=== PATIENT | female | born 1975 | race Caucasian/White ===

== ENCOUNTER 2016-10-04 17:36 | Emergency (ER) | payer OTHER ==
[~2016-10-04] VITALS: Ht 162.6 cm; Wt 63.2 kg
[~2016-10-04 17:36] MED LIST: CYCL5TAB PO; ESCI20TA38 PO; HYDR200T PO; LAMO50TA PO; RES15 PO
[2016-10-04 17:41] VITALS: BP 134/86; PULSE 74; RESP 16; O2SAT 100
[2016-10-04 18:52] LABS: BASOPHILS % (AUTO) 0.6 % (0-3); EOSINOPHILS % (AUTO) 2.8 % (0-5); MONOCYTES % (AUTO) 8.3 % (4-12); Mean Corpuscular Hemoglobin 31.6 pg (27.0-35.0); Mean Corpuscular Volume 94.6 fL (81-100); Platelet Count 265 bil/L (150-400)
[2016-10-04 19:13] LABS: Magnesium 2.2 mg/dL (1.6-2.6)
--- NOTE | 2016-10-04 20:50 | ED.REPORT ---
HPI-Abd Pain F 40 and Over Date of Service Oct 04, 2016 ED Provider: Dr. Cr A 41 year old female with a history of Lupus presents to the ED complaining of periumbilical tenderness onset 48 hours ago. Associated symptoms include diarrhea. She denies any . Nursing Notes Stated Complaint: ABD PAIN Chief Complaint: Female Abdominal Pain Nursing Notes Reviewed: Yes Allergies: Coded Allergies: No Known Allergies (Unverified , 10/04/16) Scheduled Escitalopram Oxalate (Escitalopram Oxalate) 20 Mg Tablet 20 MG PO DAILY Hydroxychloroquine Sulfate (Plaquenil) 200 Mg Tablet 100 MG PO DAILY Lamotrigine ODT (Lamotrigine ODT) 50 Mg Tab.rapdis 50 MG PO HS Scheduled PRN Cyclobenzaprine (Cyclobenzaprine) 5 Mg Tablet 5 MG PO TID PRN PRN Spasm Temazepam (Temazepam) 15 Mg Capsule 30 MG PO HS PRN PRN UNKNOWN General Time Seen by MD: 20:50 Chief Complaint Abdominal pain Hx Obtained From: Patient Arrived By: Walk-in Sudden in Onset?: No Onset Occurred: 2 days ago (24 hours ago) Symptom Duration: Since onset Severity: Current: Moderate Severity: Maximum: Moderate Recent Healthcare: No recent doctor visit Similar Sx Previous: No Past Medical History Past Medical History Lupus. Past Surgical History left knee surgery. Breast reduction. Smoking History Former Smoker Review of Systems Constitutional: Denies: Chills, Fever Cardiovascular: Denies: Chest pain GI: Reports: Abdominal pain, Diarrhea Female: Denies: Complete sys rev & neg: except as marked. Physical Exam Vital Signs Vital Signs (First) Date Time Temp Pulse Resp B/P Pulse Ox O2 Delivery O2 Flow Rate FiO2 10/04/16 17:41 36.5 74 16 134/86 100 Room Air Initial VS: Reviewed General/Constitutional: Awake, Alert Respiratory / Chest: Atraumatic, Breath sounds NL, Breath sounds = bilat, No respiratory distress, No rales, No rhonchi, No wheezing Cardiovascular: Heart rate NL, Regular rhythm, Heart sounds NL, No gallop, No murmurs, No rubs Tenderness/Guarding/Rebound: Positive: Tender periumbilical Back: Atraumatic, Full range of motion Head / Eyes: Atraumatic, Normocephalic, PERRL, EOMI ENT: Atraumatic, Airway patent, Mucous membranes moist Skin: Atraumatic, Color NL, Warm, Dry Neurologic: Oriented X3, Speech NL Upper Extremity / MS: No swelling, No edema Interpretation & Diagnostics Lab Results Interpretation Result Diagram: 10/04/16184410/04/161844 Test 10/04/16 18:45 10/04/16 19:43 10/04/16 21:03 White Blood Count 5.3th/mm3 (3.8-10.1) Red Blood Count 4.05mil/mm3 (3.90-5.20) Hemoglobin 12.8g/dL (12.0-15.6) Hematocrit 38.3% (35.0-46.0) Mean Corpuscular Volume 94.6fL (81-100) Mean Corpuscular Hemoglobin 31.6pg (27.0-35.0) Mean Corpuscular Hemoglobin Concent 33.4% (32.0-37.0) Red Cell Distribution Width 13.1% (12.3-15.4) Platelet Count 265bil/L (150-400) Neutrophils (%) (Auto) 44.0% (40-74) Lymphocytes (%) (Auto) 44.1% (14-46) Monocytes (%) (Auto) 8.3% (4-12) Eosinophils (%) (Auto) 2.8% (0-5) Basophils (%) (Auto) 0.6% (0-3) Sodium Level 137mEq/L (134-144) Potassium Level 4.4mEq/L (3.5-5.2) Chloride Level 98mEq/L (97-108) Carbon Dioxide Level 25mmol/L (18-29) Blood Urea Nitrogen 11mg/dL (6-24) Creatinine 0.66mg/dL (0.57-1.00) Estimat Glomerular Filtration Rate 141mL/min (>59) Glucose Level 93mg/dL (60-99) Calcium Level 9.8mg/dL (8.5-10.1) Magnesium Level 2.2mg/dL (1.6-2.6) Total Bilirubin 0.7mg/dL (0.0-1.2) Aspartate Amino Transf (AST/SGOT) 23U/L (0-50) Alanine Aminotransferase (ALT/SGPT) 13U/L (0-32) Alkaline Phosphatase 33U/L (25-150) Total Protein 7.6g/dL (6.4-8.4) Albumin 4.8g/dL (3.4-5.0) Lipase 47U/L (13-60) Hold [place] Tube Received (Received) Hold Urine Received (Received) Urine Color Yellow (YELLOW) Urine Appearance Clear (CLEAR,HAZY) Urine pH 6.0 (5.0-8.0) Urine Specific [place] 1.010 (1.003-1.035) Urine Protein Negativemg/dL (NEG,TRACE) Urine Glucose (UA) Negativemg/dL (NEGATIVE) Urine Ketones Negativemg/dL (NEGATIVE) Urine Occult Blood Negative (NEGATIVE) Urine Nitrite Negative (NEGATIVE) Urine Bilirubin Negative (NEGATIVE) Urine Urobilinogen Normalmg/dL (NORMAL) Urine Leukocyte Esterase Negative (NEGATIVE) Urine RBC 0-2/hpf (0-2) Urine WBC 0-5/hpf (0-5) Urine Epithelial Cells Moderate/hpf (NONE-MOD) Urine Crystals None seen (NONE SEEN) Urine Bacteria None/hpf (NONE-FEW) Urine Hyaline Casts None/lpf (NONE) Urine Granular Casts None seen (NONE SEEN) Urine Waxy Casts None seen (NONE SEEN) Urine Red Blood Cell Casts None seen (NONE SEEN) Urine White Blood Cell Casts None seen (NONE SEEN) Urine Mucus None seen (None Seen) Urine Trichomonas None seen (NONE SEEN) Urine Yeast None (NONE SEEN) CT Abd / Pelvis Interpretation CONCLUSION: No clear-cut acute findings are identified. Signed by Mark Naidu M.D. 10/05/2016, 0041 Re-Eval/Medical Decision Re-Evaluation/Progress : Time of Eval: 01:06 Re-Evaluation/Progress Note: Rechecked patient who feels fine and is pain free. Explained diagnosis and plan for discharge. Patient udnerstands and agrees with the plan. All questions addressed. Counseled Regarding: Diagnosis, Lab results, Need for follow-up, When/why to return to ED Discharge & Departure Primary Impression: Abdominal pain Abdominal location: periumbilical Qualified Code: R10.33 - Periumbilical pain Disposition: Home Discharge Condition All VS Reviewed: Yes Condition: Stable Patient Instructions: Acute Abdominal Pain (ED) Additional Instructions: CT scan was reassuring. No signs of appendicitis or an acute abdominal condition. The cause of your pain is uncertain but does not appear to be life- threatening or emergent or surgical at this time. Rest tonight. Clear liquid diet for the next 24 hours. Take 1-2 [place] every 6 hours as needed for pain. If the pain has not resolved by tomorrow or if it worsens in anyway then come back to the emergency department for recheck. I want you to set up a follow- up your primary care physician. You did have a small ovarian and renal cysts seen on the CT scan. These are probably incidental findings. Discuss this with your primary care physician in follow-up as well. Do not drive tonight Referrals: Jo Ann Gaona (PCP) Edmund Attestation Portions of this note were transcribed by Adam Ortiz. I, Dr. Cr personally performed the history, physical exam and medical decision-making; I reviewed and confirmed the accuracy of the information in the transcribed note. Signed by: Edmund Reyes, 10/05/2016, 0230. copies to: Jo Ann Gaona Todd P DO Oct 04, 2016 20:50 Adam Ortiz Oct 04, 2016 21:03
[2016-10-04 20:58] VITALS: BP 134/92; PULSE 67; RESP 16; O2SAT 100
[2016-10-04] MEDS ORDERED: Iohexol 300 mg/mL 30 mL Inj PO ONE (21:00)
[2016-10-04] MEDS ORDERED: Ondansetron 2 mg/mL 2 mL Inj IVPUSH PRN (21:00)
[2016-10-04] MEDS ORDERED: 0.9% Sodium Chloride 1,000 ML IV ONE (21:00)
[2016-10-04 21:14] LABS: APPEARANCE,URINE CLEAR (CLEAR,HAZY); COLOR,URINE YELLOW (YELLOW); OCCULT BLOOD,URINE NEGATIVE (NEGATIVE); UROBILINOGEN,URINE NORMAL (NORMAL)
[2016-10-05] MEDS ORDERED: _HYDROcodone/APAP 5-325 mg Tablet PO PRN (01:10)
[2016-10-05 01:11] VITALS: BP 123/79; PULSE 73; RESP 16; O2SAT 98
[2016-10-05 01:30] VITALS: BP 123/79; PULSE 73; RESP 16; O2SAT 98
--- NOTE | 2016-10-05 09:23 | DRSVH ---
PROCEDURE: CT ABDOMEN AND PELVIS WITH CONTRAST ([id number]) INDICATIONS: periumbillical pain, 2 days, lupus TECHNIQUE: After the administration of oral and intravenous contrast, 5 mm thick sections acquired from the diap hragms to the symphysis. 5 mm thick coronal and sagittal reformats were performed. For radiation do se reduction, the following was used: automated exposure control, adjustment of mA and/or kV accordi ng to patient size. COMPARISON: None. FINDINGS: Image quality: Excellent. ABDOMEN: Lung bases: There is mild dependent atelectasis. There is a small right lower lobe pulmonary nodule measuring up to 3 mm. Heart size is normal. Solid organs: There is hypoattenuation of the liver compatible with fatty infiltration. The spleen i s normal in size. Gallbladder appears within normal limits without calcified gallstones. Biliary sy stem is non-dilated. Pancreas enhances normally. No adrenal nodules. Kidneys demonstrate no hydron ephrosis. There is a cystic lesion in the left kidney measuring up to 1.8 cm with attenuation value is higher than expected for a simple cyst. Peritoneum and bowel: Stomach, small bowel, and colon loops are normal in caliber and wall thickness . The appendix is normal in appearance. No free fluid or air. Nodes and vessels: No retroperitoneal or mesenteric adenopathy. Aorta and inferior vena cava are no rmal in caliber. Miscellaneous: No ventral hernias. PELVIS: Genitourinary: Bladder wall thickness is normal. An IUD is demonstrated within the uterus. Miscellaneous: No inguinal hernias or adenopathy. Bones: No suspicious bony lesions. No vertebral body compression fractures. IMPRESSION: 1. No definite acute intra-abdominal abnormality to correlate with patient's pain symptoms. 2. Probable hyperdense cyst in the left kidney. Further evaluation may be obtained with ultrasound if clinically indicated. Dictated by: Kev Ruelas M.D. on 10/05/2016 at 9:01 Approved by: Kev Ruelas M.D. on 10/05/2016 at 9:22
== END 2016-10-05 01:31 | disposition home or self-care (01) ==
LOC: SED 17:36
DX: R10.33 Periumbilical pain (principal); M32.9 Systemic lupus erythematosus, unspecified; Z87.891 Personal history of nicotine dependence
CPT/HCPCS: 36415; 74177; 80053; 81001; 81025; 83690; 83735; 85025; 96361; 96374; 96375; 99285; J1885; J2405; J7030; Q9967